=== PATIENT | male | born 1975 | race Caucasian/White ===

== ENCOUNTER 2020-06-29 20:50 | Emergency (ER) | payer OTHER ==
[~2020-06-29] VITALS: Ht 167.6 cm; Wt 72.6 kg
[2020-06-29 21:00] VITALS: BP 159/78; Ht 167.6 cm; Wt 72.6 kg
== END 2020-06-29 22:44 | disposition home or self-care (01) ==
LOC: ED 20:50
DX: M25.561 Pain in right knee (principal); W18.30XA Fall on same level, unspecified, initial encounter; Y93.89 Activity, other specified; Y92.89 Other specified places as the place of occurrence of the external cause; Y99.8 Other external cause status
CPT/HCPCS: J1885; Q0092